=== PATIENT | female | born 1965 | race Caucasian/White ===

== ENCOUNTER → 2017-02-28 | Outpatient (CLI) | payer BC ==
--- NOTE | 2017-03-01 09:27 | MM ---
Reason for exam: screening (asymptomatic). Last mammogram was performed 1 year and 4 months ago. History: Patient had first child at age 33. Stereotactic core biopsy of the left breast, March 08, 2007. Physical Findings: A clinical breast exam by your physician is recommended on an annual basis and results should be correlated with mammographic findings. MG 3D Screening Mammo W/Cad Bilateral CC and MLO view(s) were taken. Prior study comparison: November 03, 2015, bilateral MG 3d diag mammo w/cad [place]. March 27, 2014, bilateral MG diagnostic mammo w CAD [place]. The breast tissue is heterogeneously dense. This may lower the sensitivity of mammography. Previous mammotome biopsy in the left breast. No significant changes when compared with prior studies. ASSESSMENT: Benign, BI-RAD 2 RECOMMENDATION: Routine screening mammogram of both breasts in 1 year.
== END | disposition home or self-care (01) ==
LOC: RADMAMWWP 08:15
PROVIDERS: ATTEND Family Medicine
DX: Z12.31 Encounter for screening mammogram for malignant neoplasm of breast (principal); Z80.3 Family history of malignant neoplasm of breast
CPT/HCPCS: 77063; G0202

== ENCOUNTER → 2017-03-30 | Outpatient (CLI) | payer BC ==
[2017-03-30 16:28] LABS: Non-African American GFR(MDRD) >60 (>60 ml/min/1.73 sqM)
--- NOTE | 2017-03-30 20:02 | MR ---
Left foot MRI with and without contrast HISTORY: Synovitis, tenosynovitis, and 65.872 Multiplanar multisequence and postcontrast images obtained for the left foot following 16 cc MultiHan ce IV No comparisons There is fluid signal along the dorsum of the foot at the level of the extensor hallucis longus and t ibialis anterior anterior tendons. Abnormal signal is present along the peroneus brevis tendon, there is some central increased signal on T2-weighted sequences within the tendon which may represent a sm all longitudinal tear. There is a plantar calcaneal spur. Plantar aponeurosis is intact. Achilles tendon is intact. Some flu id signal is present anterior to the tendon within the soft tissues. No sizable joint effusion. Bone marrow signal is maintained. Dorsal foot edema signal also present. IMPRESSION: Longitudinal tear suspected along the peroneus brevis tendon. Tenosynovitis along the ext ensor tendons.
== END ==
LOC: RADMRIMAIN 15:56
PROVIDERS: ATTEND Physician Assistant
DX: M65.872 Other synovitis and tenosynovitis, left ankle and foot (principal)
CPT/HCPCS: 82565; 73720; A9577

== ENCOUNTER 2019-10-07 14:24 | Emergency (ER) | payer BC ==
[2019-10-07] MEDS ORDERED: ONDANSETRON 4 MG/2 ML VIAL IVP STA (14:50)
[2019-10-07] MEDS ORDERED: SODIUM CHLORIDE 0.9% 500 ML 500 ML IV STA (14:50)
[2019-10-07] MEDS ORDERED: SODIUM CHLORIDE 0.9% 1,000 ML IV STA (14:50)
[2019-10-07] MEDS ORDERED: KETOROLAC 30 MG/ML 1 ML VIAL IVP STA (14:50)
--- NOTE | 2019-10-07 15:07 | ED ---
Abdominal Pain HPI - General Chief Complaint: Abdominal Pain Stated Complaint: patient states kidney stone Time Seen by Provider: 10/07/19 14:43 Source: patient, RN notes reviewed Mode of arrival: ambulatory Limitations: no limitations - History of Present Illness Initial Comments: 53-year-old female presents emergency Department chief complaint left flank pain. Patient is a sudden onset of pain around the clock this morning. Patient states that nothing really makes the pain feel better or worse. She does have a history kidney stone states this feels very similar. She's had some nausea. She's had a prior cholecystectomy no other abdominal surgeries. She has no complaints of dysuria, hematuria or urinary frequency no change in bowel habits no chest pain or shortness breath. - Related Data Home Medications Medication Instructions Recorded Confirmed Hydrochlorothiazide [Hydrodiuril] 25 mg PO DAILY 10/07/19 10/07/19 Ibuprofen [Motrin Ib] 400 mg PO Q6H PRN 10/07/19 10/07/19 Metoprolol Tartrate [Lopressor] 50 mg PO DAILY 10/07/19 10/07/19 Previous Rx's Medication Instructions Recorded Ketorolac [Toradol] 10 mg PO Q8HR #15 tab 10/07/19 Ondansetron Odt [Zofran Odt] 4 mg PO Q8HR PRN #10 tab 10/07/19 Tamsulosin [Flomax] 0.4 mg PO DAILY #7 cap 10/07/19 Allergies Allergy/AdvReac Type Severity Reaction Status Date / Time No Known Allergies Allergy Verified 10/07/19 16:36 Review of Systems ROS Statement: Those systems with pertinent positive or pertinent negative responses have been documented in the HPI. ROS Other: All systems not noted in ROS Statement are negative. Past Medical History Past Medical History: Thyroid Disorder Additional Past Medical History / Comment(s): kidney stones History of Any Multi-Drug Resistant Organisms: None Reported Past Surgical History: Cholecystectomy Additional Past Surgical History / Comment(s): parathryroidectomy Past Psychological History: No Psychological Hx Reported Smoking Status: Never smoker Past Alcohol Use History: Rare Past Drug Use History: None Reported General Exam Limitations: no limitations General appearance: alert, in no apparent distress Head exam: Present: atraumatic, normocephalic, normal inspection Neck exam: Present: normal inspection, full ROM. Absent: tenderness, meningismus, lymphadenopathy Respiratory exam: Present: normal lung sounds bilaterally. Absent: respiratory distress, wheezes, rales, rhonchi, stridor Cardiovascular Exam: Present: regular rate, normal rhythm, normal heart sounds. Absent: systolic murmur, diastolic murmur, rubs, gallop, clicks GI/Abdominal exam: Present: soft, tenderness (Mild left-sided), normal bowel sounds. Absent: distended, guarding, rebound, rigid Back exam: Absent: CVA tenderness (R), CVA tenderness (L) Neurological exam: Present: alert, oriented X3 Skin exam: Present: warm, dry, intact, normal color. Absent: rash Course Vital Signs 10/07/19 14:38 Temperature 97.9 F Pulse Rate 79 Respiratory 22 Rate Blood Pressure 139/85 O2 Sat by Pulse 99 Oximetry Medical Decision Making - Medical Decision Making 53-year-old female presented for left flank pain. Patient's labs did reveal mild cytosis, mild anemia which is chronic for patient. Patient advised to take ferrous sulfate. Patient CT shows evidence of a 7 mm UPJ stone. Patient will be advised follow-up with urology for possible lithotripsy. We discharged with pain medication, anti-inflammatories, antiemetics and Flomax. Patient's pain is controlled after Toradol in emergency department. Return parameters were discussed. Patient's CT also showed evidence of ovarian cyst advised to follow- up with PCP or [facility] for ultrasound. - Lab Data Result diagrams: 10/07/19 15:28 10/07/19 15:28 Lab Results 10/07/19 10/07/19 10/07/19 Range/Units 15:00 15:28 15:28 WBC 15.3 H (3.8-10.6) k/uL RBC 4.22 (3.80-5.40) m/uL Hgb 9.1 L (11.4-16.0) gm/dL Hct 29.5 L (34.0-46.0) % MCV 69.8 L (80.0-100.0) fL MCH 21.5 L (25.0-35.0) pg MCHC 30.8 L (31.0-37.0) g/dL RDW 15.0 (11.5-15.5) % Plt Count 424 (150-450) k/uL Neutrophils % 87 % Lymphocytes % 8 % Monocytes % 2 % Eosinophils % 1 % Basophils % 0 % Neutrophils # 13.4 H (1.3-7.7) k/uL Lymphocytes # 1.2 (1.0-4.8) k/uL Monocytes # 0.3 (0-1.0) k/uL Eosinophils # 0.2 (0-0.7) k/uL Basophils # 0.0 (0-0.2) k/uL Hypochromasia Marked Poikilocytosis Slight Microcytosis Moderate Sodium 137 (137-145) mmol/L Potassium 3.5 (3.5-5.1) mmol/L Chloride 96 L (98-107) mmol/L Carbon Dioxide 25 (22-30) mmol/L Anion Gap 16 mmol/L BUN 20 H (7-17) mg/dL Creatinine 0.58 (0.52-1.04) mg/dL Est GFR (CKD-EPI)AfAm >90 (>60 ml/min/1.73 sqM) Est GFR (CKD-EPI)NonAf >90 (>60 ml/min/1.73 sqM) Glucose 126 H (74-99) mg/dL Calcium 8.3 L (8.4-10.2) mg/dL Total Bilirubin 0.2 (0.2-1.3) mg/dL AST 23 (14-36) U/L ALT 18 (4-34) U/L Alkaline Phosphatase 104 (38-126) U/L Total Protein 7.8 (6.3-8.2) g/dL Albumin 4.7 (3.5-5.0) g/dL Amylase 56 (30-110) U/L Lipase 30 (23-300) U/L Urine Color Light Yellow Urine Appearance Cloudy H (Clear) Urine pH 7.0 (5.0-8.0) Ur Specific [place] 1.016 (1.001-1.035) Urine Protein Negative (Negative) Urine Glucose (UA) Negative (Negative) Urine Ketones 2+ H (Negative) Urine Blood Negative (Negative) Urine Nitrite Negative (Negative) Urine Bilirubin Negative (Negative) Urine Urobilinogen <2.0 (<2.0) mg/dL Ur Leukocyte Esterase Negative (Negative) Urine RBC 5 (0-5) /hpf Urine WBC <1 (0-5) /hpf Ur Squamous Epith Cells 3 (0-4) /hpf Urine Bacteria Rare H (None) /hpf Urine Mucus Rare H (None) /hpf Disposition Clinical Impression: Anemia, Ureteral calculus, left, Ovarian cyst Disposition: HOME SELF-CARE Condition: Stable Instructions (If sedation given, give patient instructions): Kidney Stones (ED) Additional Instructions: Please return to the Emergency Department if symptoms worsen or any other concerns. Prescriptions: Tamsulosin [Flomax] 0.4 mg PO DAILY #7 cap Ketorolac [Toradol] 10 mg PO Q8HR #15 tab Ondansetron Odt [Zofran Odt] 4 mg PO Q8HR PRN #10 tab PRN Reason: Nausea Is patient prescribed a controlled substance at d/c from ED?: No Referrals: Rayo Kam Jr, DO [Primary Care Provider] - 1-2 days Jimmy Hu MD [STAFF PHYSICIAN] - 1-2 days Time of Disposition: 16:44
[2019-10-07 15:15] LABS: Appearance,Urine Cloudy (Clear); Bacteria,Urine Rare /hpf; Bilirubin,Urine Negative (Negative); Blood,Urine Negative (Negative); Color,Urine Light Yellow; Glucose,Urine (UA) Negative (Negative); Ketones,Urine 2+ (Negative); Leukocyte Esterase,Urine Negative (Negative); Mucus,Urine Rare /hpf; Nitrite,Urine Negative (Negative); Protein,Urine Negative (Negative); RBC,Urine 5 /hpf (0-5); Specific Gravity,Urine 1.016 (1.001-1.035); Squamous Epithelial Cell,Urine 3 /hpf (0-4); Urobilinogen,Urine <2.0 mg/dL (<2.0); WBC,Urine <1 /hpf (0-5)
[2019-10-07 15:41] LABS: Basophils % (A) 0 %; Eosinophils # (A) 0.2 k/uL (0-0.7); Eosinophils % (A) 1 %; HCT 29.5 % (34.0-46.0); HGB 9.1 gm/dL (11.4-16.0); Hypochromasia Marked; Lymphocytes # (A) 1.2 k/uL (1.0-4.8); Lymphocytes % (A) 8 %; MCH 21.5 pg (25.0-35.0); MCHC 30.8 g/dL (31.0-37.0); MCV 69.8 fL (80.0-100.0); Mean Platelet Volume 6.8; Microcytosis Moderate; Monocytes # (A) 0.3 k/uL (0-1.0); Monocytes % (A) 2 %; Neutrophils # (A) 13.4 k/uL (1.3-7.7); Neutrophils % (A) 87 %; Platelet Count 424 k/uL (150-450); Poikilocytosis Slight; RBC 4.22 m/uL (3.80-5.40); WBC 15.3 k/uL (3.8-10.6)
--- NOTE | 2019-10-07 15:42 | XR ---
EXAMINATION TYPE: XR KUB DATE OF EXAM: 10/07/2019 3:34 PM CLINICAL HISTORY: Left flank pain with history of nephrolithiasis. TECHNIQUE: Single supine KUB image of the abdomen is obtained. COMPARISON: None. FINDINGS: Cholecystectomy clips are present. Punctate right renal calculus measuring 1 2 mm is seen o verlying the upper pole. No definite left-sided calculi. Very mild extra scoliosis of the lumbar spin e. Lung bases are well aerated. No dilated large or small bowel. No suspicious consolidations in the pelvis IMPRESSION: 1. Solitary punctate calculus overlying the right renal shadow. 2. Nonobstructive bowel gas pattern.
[2019-10-07 15:46] LABS: ALT 18 U/L (4-34); AST 23 U/L (14-36); African American GFR (CKD) >90 (>60 ml/min/1.73 sqM); Albumin 4.7 g/dL (3.5-5.0); Alkaline Phosphatase 104 U/L (38-126); Amylase 56 U/L (30-110); Anion Gap 16 mmol/L; Blood Urea Nitrogen 20 mg/dL (7-17); Calcium 8.3 mg/dL (8.4-10.2); Carbon Dioxide 25 mmol/L (22-30); Chloride 96 mmol/L (98-107); Glucose 126 mg/dL (74-99); Non-African American GFR(CKD) >90 (>60 ml/min/1.73 sqM); Potassium 3.5 mmol/L (3.5-5.1); Sodium 137 mmol/L (137-145); Total Bilirubin 0.2 mg/dL (0.2-1.3); Total Protein 7.8 g/dL (6.3-8.2)
--- NOTE | 2019-10-07 16:34 | CT ---
EXAMINATION TYPE: CT abdomen pelvis w con DATE OF EXAM: 10/07/2019 COMPARISON: NONE HISTORY: 53-year-old female Left sided flank pain with history of stones. TECHNIQUE: Contiguous axial scanning of the abdomen and pelvis following administration of 100 ml Iso azael 300 IV contrast. Delayed images through the kidneys and coronal/sagittal reconstructions perform ed. CT DLP: 1260.6 mGycm Automated exposure control for dose reduction was used. FINDINGS: LUNG BASES: No significant abnormality is appreciated. LIVER/GB: No focal liver lesion. Cholecystectomy clips. Portal venous system is patent. No biliary du ctal dilatation. PANCREAS: No significant abnormality is seen. SPLEEN: No significant abnormality is seen. ADRENALS: No significant abnormality is seen. KIDNEYS: There are three punctate 4 mm and smaller nonobstructive right renal calculi. Benign 1.4 cm cortical cyst on the right. Extrarenal pelvis on the right. On the left, there is mild hydronephrosis with delayed excretion of contrast and a 7 mm calculus just beyond the UPJ. LYMPH NODES: No mesenteric or retroperitoneal lymphadenopathy. REPRODUCTIVE ORGANS: Uterus anteverted. Both ovaries are visualized. 4.1 cm cyst of the left ovary. L eft-sided pelvic phlebolith. No abnormal fluid collection the pelvis or pelvic lymphadenopathy. BOWEL: No dilated small bowel, free fluid, or free air. Normal appendix. Mild stool burden. No peric olic inflammatory change. Mid to distal sigmoid diverticulosis. Bones: Degenerative disc disease L5-S1. IMPRESSION: 1. A 7 MM CALCULUS JUST BEYOND THE LEFT UPJ WITH MILD OBSTRUCTIVE UROPATHY. 2. A FEW PUNCTATE 4 MM AND SMALLER NONOBSTRUCTIVE RIGHT RENAL CALCULI. 3. LEFT RENAL CYST MEASURING 4.1 CM. CORRELATE FOR MENOPAUSAL STATUS. IF PRE OR PERIMENOPAUSAL, THIS LIKELY REPRESENTS A DOMINANT FOLLICLE OR FUNCTIONAL CYST. THIS WOULD BE ABNORMAL IN A POSTMENOPAUSAL FEMALE AND NONEMERGENT FOLLOW-UP PELVIC ULTRASOUND CAN FURTHER CHARACTERIZE.
[2019-10-07] MEDS ORDERED: ACET/COD 300 MG/30 MG STARTER PACK 6 TAB BTL PO STA (16:44)
[2019-10-07 16:57] VITALS: BP 131/78; PULSE 67; RESP 18; TEMP 98
== END 2019-10-07 17:01 | disposition home or self-care (01) ==
LOC: EC 14:24
DX: N20.1 Calculus of ureter (principal); N83.202 Unspecified ovarian cyst, left side; D64.9 Anemia, unspecified; Z90.49 Acquired absence of other specified parts of digestive tract; Z79.899 Other long term (current) drug therapy
CPT/HCPCS: 36415; 80053; 82150; 83690; 85025; 81001; 74018; 74177; 99284; 96374; 96375; 96361; J2405; J1885; Q9967

== ENCOUNTER → 2019-10-10 | Outpatient (CLI) | payer BC ==
--- NOTE | 2019-10-10 15:46 | XR ---
EXAMINATION TYPE: XR KUB DATE OF EXAM: 10/10/2019 3:21 PM CLINICAL HISTORY: Nephrolithiasis TECHNIQUE: Single supine KUB image of the abdomen is obtained. COMPARISON: 10/07/2019. FINDINGS: A 6 mm calculus overlies the left renal shadow. 3 mm calculus overlies the right upper lobe pole kidney. Punctate possible calculus lateral to the L3 transverse process could relate to small p hleboliths in the gonadal vein or ureteral calculus. This measures 1 to 2 mm. Phlebolith are seen wit hin the left hemipelvis. No dilated large or small bowel. Osseous structures appear intact. Cholecyst ectomy clips are seen. IMPRESSION: 1. Punctate 1 to 2 mm calculus adjacent to the L3 transverse process could represent a gonadal vein p hlebolith or small left ureteral calculus. Additional calculi overlie the bilateral renal shadows.
== END | disposition home or self-care (01) ==
LOC: RADXRMAIN 15:11
PROVIDERS: ATTEND Urology
DX: N20.0 Calculus of kidney (principal)
CPT/HCPCS: 74018

== ENCOUNTER → 2019-10-20 | Outpatient (CLI) | payer BC ==
--- NOTE | 2019-10-20 09:03 | XR ---
EXAMINATION TYPE: XR KUB DATE OF EXAM: 10/20/2019 8:57 AM CLINICAL HISTORY: Abdominal pain, D 35.2 TECHNIQUE: Single supine KUB image of the abdomen is obtained. COMPARISON: 10/02/2019. FINDINGS: There are at least 3 punctate 1 to 2 mm right renal calculi overlying the upper pole, mid p ole and lower pole. On the left no radiopaque calculi are seen however the renal shadow is partially obscured by bowel. Lung bases are well aerated. Cholecystectomy clips are seen. Osseous structures ap pear grossly intact. Phleboliths are noted within the pelvis similar to the prior. IMPRESSION: Few punctate right renal calculi are seen radiographically. The previously identified lef t-sided calculi are no longer visualized radiographically.
== END | disposition home or self-care (01) ==
LOC: RADXRMAIN 08:33
PROVIDERS: ATTEND Urology
DX: N20.0 Calculus of kidney (principal)
CPT/HCPCS: 74018

== ENCOUNTER → 2021-05-18 | Outpatient (CLI) | payer BC ==
--- NOTE | 2021-05-20 11:21 | MM ---
Reason for exam: screening (asymptomatic). Last mammogram was performed 4 years and 3 months ago. History: Patient is postmenopausal and had first child at age 33. Stereotactic core biopsy of the left breast, March 08, 2007. Physical Findings: A clinical breast exam by your physician is recommended on an annual basis and results should be correlated with mammographic findings. MG 3D Screening Mammo W/Cad Bilateral CC and MLO view(s) were taken. Prior study comparison: February 28, 2017, bilateral MG 3d screening mammo w/cad. November 03, 2015, bilateral MG 3d diag mammo w/cad [place]. There are scattered fibroglandular densities. Previous mammotome biopsy in the left breast. There is chronic nodularity in the left breast posterior outer quadrant. No significant changes when compared with prior studies. ASSESSMENT: Benign, BI-RAD 2 RECOMMENDATION: Routine screening mammogram of both breasts in 1 year.
== END | disposition home or self-care (01) ==
LOC: RADMAMWWP 15:38
PROVIDERS: ATTEND Family Medicine
DX: Z12.31 Encounter for screening mammogram for malignant neoplasm of breast (principal); Z78.0 Asymptomatic menopausal state
CPT/HCPCS: 77063; 77067

== ENCOUNTER → 2022-01-02 | Outpatient (CLI) | payer BC ==
--- NOTE | 2022-01-02 11:58 | US ---
EXAMINATION TYPE: US thyroid st tissue head/neck DATE OF EXAM: 01/02/2022 COMPARISON: NONE CLINICAL HISTORY: R22.1 LOCALIZED SWELLING, MASS AND LUMP, NECK. right neck lump. Two hypoechoic areas seen right neck measuring 1.1 x 1.0 x .7cm . This is well-circumscribed and oval in shape with central vascularity and 2.1 x .6 x 1.4 cm Is thought to reflect prominent but benign- appearing lymph node IMPRESSION: Prominent larger but benign-appearing right neck lymph node and smaller nonspecific hyper vascular solid lesion could reflect abnormal adenopathy. Neoplasm cannot be excluded. Advise CT neck correlation to further evaluate and assess for possible additional lymphadenopathy or masses.
== END | disposition home or self-care (01) ==
LOC: RADUSWWP 08:37
PROVIDERS: ATTEND Otolaryngology
DX: R22.1 Localized swelling, mass and lump, neck (principal)
CPT/HCPCS: 76536

== ENCOUNTER → 2022-01-18 | Outpatient (CLI) | payer BC ==
[2022-01-18 18:47] LABS: African American GFR (CKD) >90 (>60 ml/min/1.73 sqM); Blood Urea Nitrogen 14 mg/dL (7-17); Non-African American GFR(CKD) >90 (>60 ml/min/1.73 sqM)
--- NOTE | 2022-01-20 14:03 | CT ---
EXAMINATION TYPE: CT soft tissue neck w con DATE OF EXAM: 01/18/2022 7:08 PM COMPARISON: None HISTORY: R side lump on neck. hx of parathyroidectomy CT DLP: 500.10 mGycm Automated exposure control for dose reduction was used. CONTRAST: CT scan of the neck is performed following with IV Contrast, patient injected with 70 mL of Isovue 30 0. Axial images are obtained, coronal and sagittal reformatted images are reviewed. FINDINGS: There are postsurgical changes of left lobe thyroidectomy. The right lobe of the thyroid gland is mil dly hypertrophic but there is no focal mass. Tongue base, epiglottis, aryepiglottic folds and piriform sinuses are normal and symmetric there is n o evidence of mass. The submandibular glands glands are normal and symmetric without enlargement or focal mass or calcifi cation. There is no pharyngeal or parapharyngeal mass in the oral and nasopharynx. Thyroid, arytenoid and cricoid cartilages are normal and symmetric. The vocal cords are normal and sy mmetric in is no laryngeal mass. The great vessels the neck are normal. There is no neck adenopathy or abscess. The soft tissues benea th the metallic marker in the right neck which is placed over the area of concern there is no underly ing mass, fluid collection, inflammation or abscess. IMPRESSION: Postsurgical change of the thyroid gland with no other significant abnormality seen.
== END | disposition home or self-care (01) ==
LOC: RADCTMAIN 17:54
PROVIDERS: ATTEND Otolaryngology
DX: R22.1 Localized swelling, mass and lump, neck (principal)
CPT/HCPCS: 82565; 84520; 70491; 36415; Q9967

== ENCOUNTER → 2024-11-21 | Outpatient (CLI) | payer BC ==
--- NOTE | 2024-11-21 09:50 | US ---
EXAMINATION TYPE: US pelvic complete DATE OF EXAM: 11/21/2024 COMPARISON: 10/07/2019 CLINICAL INDICATION: Female, 58 years old with history of N95.0 POSTMENOPAUSAL BLEEDING; Heavy bleedi ng x 1 week w cramping. LMP 1-2 years ago. Hx hysterosalpingography. TECHNIQUE: Transabdominal (TA). Transabdominal grayscale sonographic images of the pelvis were acquired. Transvaginal sonographic im ages were not medically necessary. Doppler imaging: Color Images were obtained. FINDINGS: Date of LMP: 1-2 years ago EXAM MEASUREMENTS: Uterus: 9.6 x 5.2 x 6.4 cm cm Endometrial Stripe: 0.5 cm Right Ovary: 2.8 x 1.8 x 1.5 cm Left Ovary: 3.3 x 1.3 x 1.9 cm 1. Uterus: Anteverted Multiple ? Fibroids; Right anterior uterine fundus = 2.5 x 2.4 x 3.1 cm Left mid posterior uterus = 1.4 x 1.2 x 1.2 cm 2. Endometrium: wnl 3. Right Ovary: Dominant follicle seen 4. Left Ovary: Echogenic foci seen 5. Bilateral Adnexa: wnl 6. Posterior cul-de-sac: wnl IMPRESSION: 1. No evidence for acute process. 2. Endometrium within normal limits for thickness. 3. Uterine fibroids. [facility], , 11/21/2024 9:48 AM
== END | disposition home or self-care (01) ==
LOC: RADUSWWP 09:12
PROVIDERS: ATTEND Internal Medicine Infectious Disease
DX: N95.0 Postmenopausal bleeding (principal); D25.9 Leiomyoma of uterus, unspecified
CPT/HCPCS: 76856